=== PATIENT | female | born 1970 | race American Indian/Alaskan Native ===

== ENCOUNTER 2016-07-08 13:26 | Emergency (ER) | payer BC, MEDICAID ==
[2016-07-08 13:39] VITALS: RESP 18; TEMP 99.2
[2016-07-08 13:46] VITALS: O2SAT 97
--- NOTE | 2016-07-08 14:10 | ED PDOC ---
Arrival/HPI - General Chief Complaint: Abdominal Pain Time Seen by Provider: 07/08/16 13:59 Historian: Patient - History of Present Illness Time/Duration: Other (2 weeks) Symptom Onset: Gradual Symptom Course: Unchanged Quality: Aching Severity Level: Moderate Associated Symptoms (Text): 07/08/16 14:07 Approximately 2 week history of intermittent right lower back pain with radiation into her right lower quadrant and right groin. She has some urinary frequency and urgency, but no dysuria or hematuria. LMP began approximately 2 weeks ago and lasted 11 days which is unusual for her. There is been some nausea and vomiting over the last 2 days. She's felt lightheaded with vomiting. No chest pain palpitations or dyspnea. No injury or trauma. No vaginal discharge. No fever or chills. She has never experienced this previously. She appears to be comfortable. Past Medical History - Infectious Disease Hx of Infectious Diseases: None - Reproductive Menopause: No - Psychiatric Hx Substance Use: No - Anesthesia Hx Anesthesia: No Family/Social History - Physician Review Nursing Documentation Reviewed: Yes Family/Social History: Unknown Family HX Smoking Status: Light Smoker < 10 Cigarettes Daily Hx Alcohol Use: No Hx Substance Use: No Allergies/Home Meds Allergies/Adverse Reactions: Allergies No Known Allergies Allergy (Verified 07/08/16 13:39) Home Medications: Home Meds Medication Instructions Recorded Confirmed Pravastatin Sodium [Pravachol] 20 mg PO DAILY 07/08/16 07/08/16 Review of Systems - Physician Review All systems were reviewed & negative as marked: Yes - Review of Systems Constitutional: absent: Fatigue, Fevers Respiratory: absent: SOB, Cough, Sputum, Wheezing Cardiovascular: absent: Chest Pain, Palpitations, Syncope Gastrointestinal: Abdominal Pain, Nausea, Vomiting. absent: Constipation, Diarrhea, Anorexia Genitourinary Female: Frequency. absent: Dysuria, Hematuria Musculoskeletal: Back Pain. absent: Neck Pain Neurological: absent: Headache, Dizziness, Focal Weakness Physical Exam Vital Signs Temp Pulse Resp BP Pulse Ox 07/08/16 15:26 74 18 124/78 97 07/08/16 13:46 99.2 F 78 18 126/84 97 07/08/16 13:35 99.2 F 78 18 126/84 100 Temperature: Afebrile Blood Pressure: Normal Pulse: Regular Respiratory Rate: Normal Appearance: Positive for: Well-Appearing, Non-Toxic, Comfortable Pain Distress: Mild Mental Status: Positive for: Alert and Oriented X 3 - Systems Exam Head: Present: Atraumatic, Normocephalic Pupils: Present: PERRL Extroacular Muscles: Present: EOMI Conjunctiva: Present: Normal Mouth: Present: Moist Mucous Membranes Pharnyx: No: ERYTHEMA, EXUDATE, TONSILS ENLARGED Neck: Present: Normal Range of Motion Respiratory/Chest: Present: Clear to Auscultation, Good Air Exchange. No: Respiratory Distress, Accessory Muscle Use Cardiovascular: Present: Regular Rate and Rhythm, Normal S1, S2. No: Murmurs Abdomen: Present: Tenderness (Plus minus tenderness in the right lower quadrant) , Normal Bowel Sounds. No: Distention, Peritoneal Signs, Rebound, Guarding Back: Present: Normal Inspection. No: CVA Tenderness, Midline Tenderness, Paraspinal Tenderness Upper Extremity: Present: Normal Inspection. No: Cyanosis, Edema Lower Extremity: Present: Normal Inspection. No: Edema Neurological: Present: GCS=15, CN II-XII Intact, Speech Normal, Motor Func Grossly Intact, Normal Cerebellar Funct, Gait Normal Skin: Present: Warm, Dry, Normal Color. No: Rashes Psychiatric: Present: Alert, Oriented x 3, Normal Insight, Normal Concentration Medical Decision Making ED Course and Treatment: 07/08/16 16:35 Symptoms markedly improved. Waiting for CT scan. - Lab Interpretations Lab Results: 07/08/16 15:00 07/08/16 15:00 Lab Results 07/08/16 15:00: Sodium 139, Potassium 3.9, Chloride 100, Carbon Dioxide 30, Anion Gap 13, BUN 8, Creatinine 0.8, Est GFR ( Amer) > 60, Est GFR (Non- Af Amer) > 60, Random Glucose 87, Calcium 9.6, Total Bilirubin 0.5, AST 21, ALT 24, Alkaline Phosphatase 100, Total Protein 7.7, Albumin 4.0, Globulin 3.7, Albumin/Globulin Ratio 1.1, Lipase 31 07/08/16 15:00: PT 10.3, INR 0.95, APTT 26.6 07/08/16 15:00: WBC 10.0, RBC 3.75, Hgb 9.3 L, Hct 29.7 L, MCV 79.2 L, MCH 24.8 L, MCHC 31.3, RDW 16.7 H, Plt Count 352, MPV 9.2, Gran % 73.9 H, Lymph % (Auto) 20.4 L, [place] % (Auto) 5.2, Eos % (Auto) 0.3 L, Baso % (Auto) 0.2, Gran # 7.37 H , Lymph # 2.0, [place] # 0.5, Eos # 0.0, Baso # 0.02 07/08/16 14:20: Urine Color Yellow, Urine Appearance Clear, Urine pH 6.5, Ur Specific [place] 1.020, Urine Protein Trace H, Urine Glucose (UA) Negative, Urine Ketones Negative, Urine Blood Negative, Urine Nitrate Negative, Urine Bilirubin Negative, Urine Urobilinogen 1.0 H, Ur Leukocyte Esterase Negative, Urine RBC 0 - 2, Urine WBC 0 - 2, Ur Epithelial Cells 4 - 5, Amorphous Sediment Few, Urine Bacteria Many, Urine Other Uyeast - RAD Interpretation Radiology Orders: 07/08/16 14:11 ABD & PELVIS W/O PO OR IV CONT [CT] Stat CT scan of the abdomen and pelvis is read by the radiologist shows a left adrenal nodule and fibroid uterus, otherwise no acute findings Narcotics Investigator: Radiologist - Medication Orders Current Medication Orders: Discontinued Medications Sodium Chloride (Sodium Chloride 0.9%) 1,000 mls @ 1,000 mls/hr IV .Q1H STA Stop: 07/08/16 15:10 Last Admin: 07/08/16 15:00 Dose: 1,000 mls/hr Ketorolac Tromethamine (Toradol) 30 mg IVP STAT STA Stop: 07/08/16 14:12 Last Admin: 07/08/16 15:26 Dose: 30 mg Ondansetron HCl (Zofran Inj) 4 mg IVP STAT STA Stop: 07/08/16 14:12 Last Admin: 07/08/16 15:26 Dose: 4 mg Disposition/Present on Arrival - Present on Arrival Any Indicators Present on Arrival: No History of DVT/PE: No History of Uncontrolled Diabetes: No Urinary Catheter: No History of Decub. Ulcer: No History Surgical Site Infection Following: None - Disposition Have Diagnosis and Disposition been Completed?: Yes Diagnosis: Back pain, Abdominal pain, Fibroid uterus, Nausea and vomiting Disposition: HOME/ ROUTINE Disposition Time: 16:52 Patient Plan: Discharge Condition: IMPROVED Discharge Instructions (ExitCare): Uterine Fibroids (ED), Acute Nausea and Vomiting (ED), Acute Abdominal Pain (ED) Additional Instructions: Follow-up with PMD and [employer] [facility] CUT [facility]. Follow-up in the ER as needed. Prescriptions: Naproxen [Naprosyn] 500 mg PO BID #14 tab Ondansetron [Zofran Odt] 4 mg SL Q6 #20 odt Referrals: Devin Jack APN [Primary Care Provider] - Follow up with primary Forms: WORK NOTE
[2016-07-08] MEDS ORDERED: Sodium Chloride 0.9% 1,000 ML IV STA (14:11)
[2016-07-08 14:41] LABS: PH,URINE 6.5 (4.7-8.0); URINE BILIRUBIN NEGATIVE (NEGATIVE); URINE BLOOD NEGATIVE (NEGATIVE); URINE GLUCOSE (UA) NEGATIVE (NEGATIVE); URINE KETONE NEGATIVE (NEGATIVE); URINE LEUKOCYTE ESTERASE NEGATIVE Leu/uL (NEGATIVE); URINE PROTEIN TRACE mg/dL (<30 mg/dL)
[2016-07-08 14:43] LABS: URINE APPEARANCE CLEAR (CLEAR); URINE COLOR YELLOW (YELLOW)
[2016-07-08 14:53] LABS: URINE RBC 0 - 2 /hpf (0-2); URINE WBC 0 - 2 /hpf (0-6)
[2016-07-08 14:54] LABS: URINE AMORPHOUS SEDIMENT FEW; URINE BACTERIA MANY (NEG)
[2016-07-08 15:26] LABS: ADD MANUAL DIFF? NO
[2016-07-08 15:29] LABS: BASO # 0.02 K/mm3 (0.0-2.0); BASO % 0.2 % (0.0-3.0); EOS % 0.3 % (1.5-5.0); GRAN # 7.37 (1.4-6.5); GRAN % 73.9 % (50.0-68.0); HEMATOCRIT 29.7 % (36.0-48.0); LYMPH % 20.4 % (22.0-35.0); MEAN CELL VOLUME 79.2 fL (80.0-105.0); MEAN CORPUSCULAR HEMOGLOBIN 24.8 pg (25.0-35.0); MEAN CORPUSCULAR HGB CONC 31.3 g/dl (31.0-37.0); MEAN PLATELET VOLUME 9.2 fl (7.0-11.0); MONO # 0.5 (0.1-0.6); MONO % 5.2 % (1.0-6.0); PLATELET COUNT 352 10^3/uL (120.0-450.0); RED CELL DISTRIBUTION WIDTH 16.7 % (11.5-14.5)
[2016-07-08 15:39] LABS: ALB/GLOB RATIO 1.1 (1.1-1.8); ALKALINE PHOSPHATASE 100 U/L (38-133); ALT/SGPT 24 U/L (7-56); AST/SGOT 21 U/L (15-39); BILIRUBIN,TOTAL 0.5 mg/dL (0.2-1.3); BLOOD UREA NITROGEN 8 mg/dL (7-21); CALCIUM 9.6 mg/dL (8.4-10.5); CARBON DIOXIDE 30 mmol/L (21-33); CHLORIDE 100 mmol/L (98-107); GFR AFRICAN-AMERICAN > 60; GLUCOSE,RANDOM 87 mg/dL (70-110); INR 0.95 (0.93-1.08); LIPASE 31 U/L (23-300); PARTIAL THROMBOPLASTIN TIME 26.6 Seconds (23.7-30.8); POTASSIUM 3.9 mmol/L (3.6-5.0); SODIUM 139 mmol/L (132-148); TOTAL PROTEIN 7.7 g/dL (5.8-8.3)
[2016-07-08 15:54] VITALS: BP 124/78; PULSE 74
--- NOTE | 2016-07-08 16:44 | CT ---
PROCEDURE: CT Abdomen and Pelvis without intravenous contrast HISTORY: right stone run COMPARISON: None. TECHNIQUE: Without contrast. Contrast Dose: Radiation dose: Total exam DLP = 441 mGy-cm. This CT exam was performed using one or more of the following dose reduction techniques: Automated exposure control, adjustment of the mA and/or kV according to patient size, and/or use of iterative reconstruction technique. FINDINGS: LOWER THORAX: Unremarkable. LIVER: Unremarkable. No gross lesion or ductal dilatation. GALLBLADDER AND BILE DUCTS: Unremarkable. PANCREAS: Unremarkable. No gross lesion or ductal dilatation. SPLEEN: Unremarkable. ADRENALS: There is a 1.5 cm left adrenal nodule that is low in density consistent with an adenoma. KIDNEYS AND URETERS: Unremarkable. No hydronephrosis. No solid mass. VASCULATURE: Unremarkable. No aortic aneurysm. BOWEL: Unremarkable. No obstruction. No gross mural thickening. APPENDIX: Unremarkable. Normal appendix. PERITONEUM: There is a small amount of fluid in the cul-de-sac LYMPH NODES: Unremarkable. No enlarged lymph nodes. BLADDER: Unremarkable. REPRODUCTIVE: The uterus is mildly enlarged and lobulated consistent with fibroids. This measures 9 cm wide by 7.8 cm AP by 9.7 cm in length BONES: No acute fracture. OTHER FINDINGS: None. IMPRESSION: No acute findings. No evidence of ureteral stone
== END 2016-07-08 17:15 | disposition home or self-care (01) ==
LOC: MERGE 13:26 → ED 13:26
DX: D25.9 Leiomyoma of uterus, unspecified (principal); M54.9 Dorsalgia, unspecified; R10.9 Unspecified abdominal pain; R11.2 Nausea with vomiting, unspecified
CPT/HCPCS: 74176; 80053; 81001; 83690; 85025; 85610; 85730; 96374; 96375; 99283; J1885; J2405; J7040